=== PATIENT | male | born 1980 | race African-American/Black ===

== ENCOUNTER 2023-11-21 13:44 | Emergency (ER) | payer MEDICAID ==
[~2023-11-21] VITALS: Ht 175.3 cm; Wt 75.0 kg
[2023-11-21 13:47] VITALS: O2SAT 99
[2023-11-21] MEDS ORDERED: IBUPROFEN 800MG TABLET PO ONE (16:00)
[2023-11-21] MEDS ORDERED: IBUPROFEN 400MG TABLET PO NR (16:15)
[2023-11-21] MEDS ORDERED: IBUP-2030 MT (16:56)
[2023-11-21 17:13] VITALS: BP 116/78; PULSE 90; RESP 14; TEMP 97.9
== END 2023-11-21 17:13 | disposition home or self-care (01) ==
LOC: ER 14:02
DX: M54.50 Low back pain, unspecified (principal); V19.9XXA Pedal cyclist (driver) (passenger) injured in unspecified traffic accident, initial encounter; Y93.89 Activity, other specified; Y92.89 Other specified places as the place of occurrence of the external cause; Y99.8 Other external cause status
CPT/HCPCS: 72100; 99283